=== PATIENT | male | born 1965 | race Caucasian/White ===

== ENCOUNTER 2024-08-22 19:26 | Outpatient (CLI) | payer OTHER ==
--- NOTE | 2024-08-30 12:31 | P.PCN ---
Description of Procedure: POLYSOMNOGRAPHY REPORT PROCEDURE(S)/DATE(S): Polysomnography 08/22/2024 CLINICAL: Patient has been seen in the sleep center for evaluation of obstructive sleep apnea-hypopnea syndrome. Please see my consultation. Sleep study has been done for evaluation of patient breathing during the sleep. PROCEDURE: The standard montage for clinical polysomnography included the electroencephalogram, the electrooculogram, the mentalis surface electromyography and Lead II cardiography. The respiratory battery consisted of measurements of nasal/buccal air flow, pressure transducer measurements from nose, thoracic and/or abdominal effort and intercostal surface electromyography. Video monitoring has been done to check for any parasomnia events. Nocturnal oxyhemoglobin saturations were obtained by finger oximetry. Step-villarreal titration with positive airway pressure was utilized to control the respiratory events, if necessary. RESULTS: During the diagnostic sleep study sleep efficiency was significantly decreased to 61.4%. Latency to sleep onset was borderline 9.0 min. Sleep architecture showed stage NI was extremely high at 95.2%, Delta sleep was absent 0%, REM sleep was extremely short 3.2%. Respiratory channel showed 4 obstructive apneas, 0 mixed apneas, 0 central apneas, 434 hypopneas with lowest oxygen level 48%. Total apnea hypopnea index was 113.5. Heart rate was in the range between 61 and 92, average 78. EMG showed 0 periodic limb movements per hour with 0 micro-arousals per hour. IMPRESSIONS: 1. Extremely severe obstructive sleep apnea hypopnea syndrome. 2. No significant periodic limb movements have been documented. Please see other impressions from consultation PLAN: 1. The patient will have PAP titration for correction of respiratory abnormalities during the sleep. 2. Losing weight program. 3. Sleep hygiene with regular time in bed for at least 7-1/2 hours. 4. No driving if feeling sleepiness. Thank you very much for allowing me to participate in the management of your patient. Sincerely, Zbigniew Lopez MD, PhD, FAASM. Diplomat of [place] [employer], Sleep Medicine Board by [place] [facility] [place] cc: Melania Boogie MD
== END 2024-08-23 04:00 | disposition home or self-care (01) ==
LOC: 3 N SLEEP 19:26
PROVIDERS: ATTEND Internal Medicine
DX: G47.33 Obstructive sleep apnea (adult) (pediatric) (principal)
CPT/HCPCS: 95810

== ENCOUNTER 2024-09-07 19:45 | Outpatient (CLI) | payer OTHER ==
--- NOTE | 2024-09-14 17:47 | P.PCN ---
Description of Procedure: CLINICAL: Titration with positive air pressure has been done for correction of respiratory abnormalities during sleep. DESCRIPTION OF PROCEDURE: The standard montage for clinical polysomnography included the electroencephalogram, the electrocardiogram, the mentalis surface electromyography and Lead II cardiography. The respiratory battery consisted of measurements of nasal /buccal air flow, pressure transducer measurements from the nose, thoracic and /or abdominal effort and intercostal surface electromyography. Video monitoring has been done to check for any parasomnia events. Nocturnal oxyhemoglobin saturations were obtained by finger oximetry. Step-villarreal titration with positive airway pressure was utilized to control respiratory events. Raw data of sleep recording has been reviewed and is adequate. RESULTS: Sleep efficiency was borderline 88.4%. Latency to sleep onset was short 4.0 minutes.]. Sleep architecture showed stage N1 was short 2.8%, Delta sleep was absent 0%, REM sleep was significantly high 42.0%. Heart rate was minimum 30 BPM, maximum 113 BPM, average 67 BPM. EMG showed 55.3 periodic limb movements per hour with 1.6 micriarousals per hour. PAP titration have been done with CPAP up to the pressure 15 cm H2O. Patient had problems with CPAP, switched to BPAP. BPAP titrated up to 25/21 cm H2O. patient continued to have oxygen desaturation. Oxygen was added and titrated up to 4 L/min. The best results were at the pressure 25/21 cm H2O with oxygen 4 L/min supplement. Apnea hypopnea index reduced to 4.4 with average oxygen saturation 88%. Totally for the whole night of titration oxygen was below or equal 88% for 310.7 minutes which is 72.2% of recording time. IMPRESSION: 1. Minimally severe obstructive sleep apnea hypopnea syndrome with apnea hypopnea index 113 mostly on controle with BPAP 25/21 centimeters of water with 4 l/minoxygen supplement. 2. Significant periodic limb movements have been documented. Please see other impressions from consultation. PLAN: 1. The patient will have treatment with positive air pressure equipment with the level of pressure auto BiPAP with maximal inspiratory pressure 24, minimal expiratory pressure 10, pressure support 4 cm H2O, oxygen supplement 4 L/min and should use it every night for the whole night. 2. Watching and losing weight. 3. Sleep hygiene with regular time in bed for at least 8 hours. 4. No driving if feeling any sleepiness. 5. I will see the patient for follow up visit to explain the results of the test, recommendations, check compliance with treatment and make any necessary adjustment related to mask fitting, pressure and humidification. 6. Please check iron profile including ferritin level. Low level of iron may i ncrease risk for periodic limb movements Thank you very much for allowing me to participate in the management of your patient. Sincerely, Zbigniew Lopez MD, PhD, FAASM Diplomat of [employer] Sleep Medicine Board of [place] [facility] [place] cc: Melania Boogie MD
== END 2024-09-08 05:30 | disposition home or self-care (01) ==
LOC: 3 N SLEEP 19:45
PROVIDERS: ATTEND Internal Medicine
DX: G47.33 Obstructive sleep apnea (adult) (pediatric) (principal)
CPT/HCPCS: 95811

== ENCOUNTER → 2024-10-23 | Outpatient (CLI) | payer OTHER ==
[2024-10-23 11:06] VITALS: BP 150/68; PULSE 90; RESP 20; TEMP 97.7
--- NOTE | 2024-10-23 12:01 | P.PROGSL ---
Subjective DATE: 10/23/2024 FOLLOW UP VISIT. Patient with obstructive sleep apnea hypopnea syndrome return to sleep center for follow-up visit. Recently patient had sleep study which documented obstructive sleep apnea hypopnea syndrome. Patient was initiated on PAP therapy and today is first visit after treatment was started. I explained to the patient results of sleep studies in details. Patient was able to use BPAP equipment and oxygen supplement 4 L/min every night for the whole night. The patient does not have significant problems with the mask, PAP pressure and humidification. [place] sleepiness scale is 9. Which showed improvements to normal range ,during consultation it was 20. I checked information from PAP unit. BPAP unit pressure maximal inspiratory pressure 24, minimal expiratory pressure 10, pressure support 4, average pressure 21.5 or 17.5 cm H2O. Usage is 100% for more then 4 hours, average 6.1 hours per night. Apnea Hypopnea Index is 5.1, which is normal. MEDICATIONS: Please see below During physical exam: GENERAL: A pleasant patient without any distress. VITAL SIGNS: Please see below, weight 319 pounds, patient lost 6 pounds comparing with consultation visit. HEENT: PERRLA, EOMI.low position of soft palate, Mallapati 4 . NECK: Supple. No JVD. LUNGS: Clear to percussion and to auscultation. Good air exchange. No wheezing or rhonchi. HEART: S1, S2 regular. ABDOMEN: Soft and nontender. Obese EXTREMITIES: No clubbing or cyanosis. Bilateral lower leg edema [employer]: Awake, alert, and oriented x3. No focal deficit. Impressions: 1. Extremely severe obstructive sleep apnea-hypopnea syndrome, original apnea hypopnea index 113.5 with oxygen desaturation to 48%. During titration oxygen level was below or equal 88% for 310 minutes, which was 72.2% of recording time patient demonstrated great compliance with treatment, benefiting from treatment. 2. COPD, emphysema, history of smoking for 45 pack years, presently half pack a day. 3. Hypertension. 4. CHF. 5. Diabetes mellitus. 6. Hyperlipidemia. 7. Obesity, BMI in the range of 45. Plan: 1. Continue using PAP equipment with oxygen supplement 4 L/min every night for the whole night. 2. To change air filter at least 1-2 times per month. 3. PAP unit should stay lower then position of the head. 4. Advised patient to remove all remaining water from humidifier canister daily and make it dry after each usage. Refill canister with fresh distilled water before each usage. 5. Sleep hygiene with regular time in bed for at least 8 hours. 6. Precautions related to driving. No driving if feel any sleepiness. 7. I will maintain prescription for PAP supplies including mask, tube, filters. 8. Follow up visit in 8 months or earlier if patient has any problems. 9. Watching and losing weight. Thank you very much for allowing me to participate in the management of your patient. Zbigniew Lopez MD, PhD, FAASM. Diplomat of [place] [employer], Sleep Medicine Board by [place] [employer] Communication Analyst [facility] [place] Objective - Vital Signs Vital Signs: Vital Signs Temp 97.7 F 10/23/24 11:05 Pulse 90 10/23/24 11:05 Resp 20 10/23/24 11:05 BP 150/68 10/23/24 11:05 Pulse Ox 93 L 10/23/24 11:05 FiO2 Home Medications: Home Medications Medication Instructions Recorded Confirmed Type Albuterol Inhaler [Ventolin Hfa 1 - 2 puff INHALATION Q6H PRN 07/20/24 07/20/24 History Inhaler] Atorvastatin [Lipitor] 20 mg PO DAILY 07/20/24 07/20/24 History Gabapentin [Neurontin] 300 mg PO TID 07/20/24 07/20/24 History Glimepiride 4 mg PO DAILY 07/20/24 07/20/24 History Losartan Potassium 100 mg PO DAILY 07/20/24 07/20/24 History Torsemide [Soaanz] 20 mg PO 07/20/24 History dilTIAZem HCL 120 mg PO TID 07/20/24 07/20/24 History metFORMIN HCL 1,000 mg PO BID 07/20/24 07/20/24 History
== END ==
LOC: 3 N SLEEP 10:44
PROVIDERS: ATTEND Internal Medicine
DX: G47.33 Obstructive sleep apnea (adult) (pediatric) (principal); J44.9 Chronic obstructive pulmonary disease, unspecified; J43.9 Emphysema, unspecified; I11.0 Hypertensive heart disease with heart failure; I50.9 Heart failure, unspecified; E11.9 Type 2 diabetes mellitus without complications; E78.5 Hyperlipidemia, unspecified; E66.9 Obesity, unspecified; Z68.42 Body mass index [BMI] 45.0-49.9, adult; Z99.89 Dependence on other enabling machines and devices; Z87.891 Personal history of nicotine dependence
CPT/HCPCS: 99212